=== PATIENT | female | born 1970 | race Caucasian/White ===

== ENCOUNTER 2016-10-29 17:54 | Emergency (ER) | payer MEDICARE ==
[~2016-10-29] VITALS: Ht 170.2 cm; Wt 91.0 kg
[2016-10-29 18:00] VITALS: BP 116/77; PULSE 125; RESP 16; TEMP 98.4; O2SAT 97
[2016-10-29] MEDS ORDERED: GABA300C5 PO (18:17)
[2016-10-29] MEDS ORDERED: [UNRECOGNIZED DRUG - CODE] IV (18:17)
[2016-10-29] MEDS ORDERED: DAPA1TAB3 PO (18:17)
[2016-10-29] MEDS ORDERED: ROSU1TAB8 PO (18:17)
[2016-10-29] MEDS ORDERED: METF1000 PO (18:17)
[2016-10-29] MEDS ORDERED: CYCL1TAB29 PO (18:17)
[2016-10-29] MEDS ORDERED: ASPI1TAB69 PO (18:17)
[2016-10-29] MEDS ORDERED: METO25TA6 PO (18:17)
[2016-10-29] MEDS ORDERED: RANI300T PO (18:17)
[2016-10-29] MEDS ORDERED: OMEP20TA PO (18:17)
[2016-10-29] MEDS ORDERED: LOSA25TA PO (18:17)
[2016-10-29] MEDS ORDERED: insulin pump SQ/IV (18:17)
[2016-10-29] MEDS ORDERED: AMIT50TA3 PO (18:17)
[2016-10-29] MEDS ORDERED: ROSU20 PO (18:17)
[2016-10-29] MEDS ORDERED: SERT-132 PO (18:17)
--- NOTE | 2016-10-29 18:17 | PD ---
HPI . finger injury on October 18 Chief Complaint: suture removal Time Seen by Provider: 18:16 Travel History International Travel<30 days: No Contact w/Intl Traveler<30days: No Traveled to known affect area: No History of Present Illness HPI 46-year-old female here with complaints of a left pinky finger injury that occurred on October 18. Apparently patient sliced her finger open and had a repaired in the [place]. At that point she was told she had a crush injury to her finger and that her laceration needed to heal first. She is here for suture removal and wanting to know if an x-ray can be done that she can obtain a splint. She also reports some numbness in the finger. She denies any pain. [facility] Past Medical History Diabetes: Yes Social History Tobacco Use: Yes Allergies-Medications (Allergen,Severity, Reaction): Coded Allergies: Sulfa (Verified Allergy, Severe, Anaphylaxis, 10/29/16) Reported Meds & Prescriptions Reported Meds & Active Scripts Active Reported [insulin pump] 2.5 Units SQ/IV CONTINUOUS Morphine RN SURGERY ICU Inj (Morphine Sulfate) 30 Mg/30 Ml Vial 1 Mg IV DIRECTED PRN RN SURGERY ICU Metoprolol Succinate ER 24 HR (Metoprolol Succinate) 25 Mg Tab 25 Mg PO HS Flexeril (Cyclobenzaprine HCl) 10 Mg Tab 10 Mg PO HS Farxiga (Dapagliflozin) 10 Mg Tab 10 Mg PO DAILY Sertraline (Sertraline HCl) 50 Mg Tab 150 Mg PO DAILY Crestor (Rosuvastatin Calcium) 20 Mg Tab 20 Mg PO HS Rosuvastatin (Rosuvastatin Calcium) 20 Mg Tab 20 Mg PO DAILY Ranitidine (Ranitidine HCl) 300 Mg Tab 300 Mg PO HS Omeprazole 20 Mg Tab 20 Mg PO DAILY Metformin (Metformin HCl) 1,000 Mg Tab 1,000 Mg PO BIDPC With meals Losartan (Losartan Potassium) 25 Mg Tab 25 Mg PO DAILY Gabapentin 300 Mg Cap 600 Mg PO BID Aspirin 81 Mg Tabdr 81 Mg PO DAILY Amitriptyline (Amitriptyline HCl) 50 Mg Tab 50 Mg PO HS Review of Systems General / Constitutional: No: Fever Eyes: No: Visual changes HENT: No: Headaches Cardiovascular: No: Chest Pain or Discomfort Respiratory: No: Shortness of Breath Gastrointestinal: No: Abdominal Pain Genitourinary: No: Dysuria Musculoskeletal: No: Pain Skin: Positive Other (suture removal left pinky), No Rash Neurologic: No: Weakness Psychiatric: No: Depression Endocrine: No: Polydipsia Hematologic/Lymphatic: No: Easy Bruising Physical Exam Narrative GENERAL: AAO x 3, no acute distress, Well-nourished, well-developed patient. SKIN: Warm and dry. No visible rashes or bruising. 8 sutures in left distal tip of pinky finger on left hand. One suture is overgrown. 7 others are normal.There is some slight wound dehiscence in the middle of the wound. There is no purulent drainage. Capillary refill is normal. While working on the finger, patient's sensation returned. Sensation is normal. Finger is pink without any signs of necrosis. No ecchymosis. HEAD: Normocephalic and atraumatic. EYES: No scleral icterus. No injection or drainage. ENT: No nasal drainage noted. Mucous membranes pink. Airway patent. NECK: Supple, trachea midline. No JVD. CARDIOVASCULAR: Regular rate and rhythm without murmurs, gallops, or rubs. RESPIRATORY: Breath sounds equal bilaterally. No accessory muscle use. No rhonchi or rales. GASTROINTESTINAL: Abdomen soft, non-tender, nondistended. EXTREMITIES: No cyanosis or edema. BACK: Nontender without obvious deformity. No CVA tenderness. PSYCH: AAO x 3, normal affect. Data Data Last Documented VS Vital Signs Date Time Temp Pulse Resp B/P Pulse Ox O2 Delivery O2 Flow Rate FiO2 10/29/16 18:00 98.4 125 16 116/77 97 Room Air [facility] Medical Decision Making Medical Screen Exam Complete: Yes Emergency Medical Condition: Yes Medical Record Reviewed: Yes Differential Diagnosis Suture removal, paresthesias, finger fracture Narrative Course 46-year-old female here with complaints of a left pinky finger injury that occurred on October 18. Apparently patient sliced her finger open and had a repaired in the [place]. At that point she was told she had a crush injury to her finger and that her laceration needed to heal first. She is here for suture removal and wanting to know if an x-ray can be done that she can obtain a splint. She also reports some numbness in the finger. She denies any pain. Patient seen and examined. 8 sutures removed from the left pinky finger. There is slight dehiscence of the wound. Wound was cleaned and Dermabond was applied. steri strip placed Clean dressing applied Explained that imaging is not indicated. I do not find any acute issues warranting imaging or any further treatment. explained not to keep this area moist as it will prohibit proper wound healing. Advise follow-up with her primary care provider Diagnosis Primary Impression: Visit for suture removal Patient Instructions: Acute Wound Care (ED), General Instructions Additional Instructions: Please return to emergency department if your symptoms return or worsen. Follow up with your primary care provider. Take medications as prescribed. [place] for worsening signs of infection which include increased redness, increased warmth, purulent drainage, increased swelling or streaking. Keep area free from moisture as that prevents proper wound healing. Med/Other Pt SpecificInfo: No Change to Meds Disposition: 01 DISCHARGE HOME Condition: Stable Love Zelaya Oct 29, 2016 18:17
== END 2016-10-29 19:10 | disposition home or self-care (01) ==
LOC: PHEFT 17:54
DX: Z48.02 Encounter for removal of sutures (principal); T81.33XA Disruption of traumatic injury wound repair, initial encounter; E11.9 Type 2 diabetes mellitus without complications; R20.0 Anesthesia of skin
CPT/HCPCS: 12001